=== PATIENT | female | born 1990 | race Caucasian/White ===

== ENCOUNTER 2019-03-05 20:19 | Outpatient (AMB) | payer MEDICAID, SELFPAY ==
--- NOTE | 2019-03-05 20:39 | UCVISIT ---
Intake Ht./Wt. Decline/Exclusions Patient Declined Height and Weight this visit: No PT Meets exclusion criteria: No Vital Signs 03/05/19 20:40 Height 5 ft 10 in Height Method Measured Weight 285 lb Weight Measurement Method Standing Scale BMI 40.8 Temp 98.7 F Temp Source Temporal Artery Scan Pulse 105 H Pulse Source Monitor Respiration 18 BP 126/76 Blood Pressure Source Automatic Cuff Blood Pressure Location Right Upper Arm Position Sitting Pulse Oximetry (%) 97 Oxygen Delivery Method Room Air Intake Zika Travel: No Been in contact w/anyone who has been Dx w/Zika Virus: No Been in contact w/anyone sick during travel outside country: No Patient >or equal to 18 years BMI outside of range 18.5-24.9: Yes Visit Reasons: UC Headache Primary Care Provider: Meir Garcia Is patient in pain?: Yes Pain Location:: head Bliss-Luna/Numerical: 7 Pain Scale Used: Numeric (1 - 10) Triage Triage Allergy / Med Rec Allergies morphine Allergy (Intermediate, Verified 03/05/19 21:38) Itching codeine Allergy (Mild, Verified 03/05/19 21:38) rash Band Placement: Patient Identification ESTRELLA: 0-Lcd-Hcaflc Arrival Mode of Arrival: Private Vehicle Method of Arrival: Ambulatory Accompanied By: Self PCP or OBGYN visit in last 3 months: Yes Language Preferred Language: Dominican Hospice Care Consultant Required: No Female History Now: No Last Menstrual Period: 02/12/19 : Yes Social History Alcohol / Drugs Hx Alcohol Use: No Hx Substance Use: No Safety Do You Feel Safe at Home: Yes Authorities Contacted: N/A Roberts Fall Scale Special Populations Patient Comatose, Paralyzed or Immobile: No Patient Under the Age of 44 Years Old: No Assessment History of falling; immediate or within 3 months: No Secondary diagnosis: Yes Ambulatory aid: None IV Infusion: No Gait/Transferring: Normal/bedrest/immobile Mental Status: Oriented to own ability Score Score: 15 Risk Level/Action Risk Level: Low Risk Action: Good Basic Nursing Care Fall Star Level 1 Fall Star Level 1: Yes Patient Education Topic Education Topics: Discharge Instructions and Plan of Care Teaching Recipient: Patient Readiness, Motivation to Learn: Active Methods: Verbal instruction and Hand Out Educ Materials Suggested by INFO Button/Rx Monograph Given: No Response: Verbalize Understanding Hospice Care Consultant Required: No Population Health PMH Hx Congestive Heart Failure: No Hx Diabetes Mellitus Type 1: No Hx Diabetes Mellitus Type 2: No Hx Renal Disease: No Hx Chronic Obstructive Pulmonary Disease (COPD): No Past Medical History Reviewed and agree with Nursing documentation.: Yes Past Medical History History Provided By: Patient Past Medical History: Yes Family Medical History Systems Hx Family Cardiac Disorders: Yes Hx Family Gastrointestinal Problems: No Hx Family Psychiatric Problems: No Hx Family Respiratory Disorders: No Family Medical History Other Hx Family Allergies: No Hx Family Anesthesia Reaction: No Hx Family Autoimmune Disease: No Hx Family Cancer: Yes Hx Family Surgery: No Cardiac Medical History Hx Cardiac Disorders: No Hx Congestive Heart Failure: No Endocrine Medical History Hx Endocrine Disorders: No Hx Diabetes Mellitus Type 1: No Hx Diabetes Mellitus Type 2: No Gastrointestinal Medical History Hx Gastrointestinal Disorders: Yes Hx GERD: Yes Hx Obesity: Yes Genitourinary Medical History Hx Genitourinary Disorders: No Hx Renal Disease: No Hematologic Medical History Hx Blood Disorders: No Musculoskeletal History Hx Musculoskeletal Disorders: No Neurologic Medical History Hx Neurological Disorders: No Hx Seizures: No Psycho/Social Medical History Hx Psychosocial Disorder: Yes Hx Anxiety: Yes Reproductive Medical History Hx Reproductive Disorders: Yes (polycystic ovarian syndrome) Respiratory Medical History Hx COPD: No General Surgical History Hx Surgery: Yes Female Reproductive Surgical History Hx Section: No Other Medical History ([facility]) Hx Hospitalization: No [facility] -Treatments & Interventions Hx Anesthesia Reactions: No Hx Blood Transfusions: No Hx Blood Transfusion Reaction: No HPI Headache Patient who had a previous history of migraines several years ago but has not had any since presents today with complaints of a severe headache that began about 10 AM this morning patient states [place] to having very little to drink and nothing to eat today patient states that she has taken 4 Tylenols and some ibuprofen with no relief of the pain she denies any dizziness nausea vomiting weakness fatigue shortness of breath chest pain head trauma use of illicit substances tobacco products or alcohol products. 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 Review of Systems (UC) Review of Systems All systems reviewed & no additional complaints except as documented Exam (UC) Alert and oriented x3 in no acute distress skin is normal color no diaphoresis eyes anicteric PERRLA ear canals are clear TMs pearly white and retracted nose patent no discharge mucosa is pink no exudate no lesions neck supple no lymphadenopathy lungs are clear to auscultation bilaterally heart is regular rate rhythm normal S1-S2 no murmurs rubs or gallops cranial nerves II through XII are intact SPO2%: 97% SPO2 type: Room Air SPO2% Normal/Abnormal: Normal Office Procedures Level of Care Nursing/Assessment/Reassessment Patient Status: Established Patient Nursing Assessment/Reassessment: Triage Asessment, Initial Vital Signs and RN General Assessments Coordination of Care: DC Instructions Simple Established Patient Charge Established Patient Point Assignment: 40 Established Patient Point Assignment: EP Level 2 (40-75) Procedures: Pulse Ox reading: Yes Assessment and Plan Assessment & Plan (1) Headache: Qualifiers: Headache chronicity pattern: acute headache Headache type: unspecified Intractability: not intractable Qualified Code(s): R51 - Headache Plan - José Miguel Ramos PA-C: I suspect the headache is caused by hunger and some mild dehydration you should eat a full meal and drink plenty of fluids get some rest and if symptoms does not improve in the morning follow-up with your primary care provider if symptoms should worsen go to the emergency department Plan Details Primary Care Provider: Meir Garcia Additional Information PA/REAL PROPERTY EVALUATOR Supervising Physician: Italo Reid DC Evaluation Discharge Information Seen, Treated and Released by Provider: No Left Prior to Receiving Discharge Instructions: No Transfer to Outside Facility: No Vital Signs Vitals Signs N/A: Yes Pain Pain Medication / Other Intervention Provided: No Medication Medication Given this Visit: No Discharge Information Condition on Discharge: Stable Mode of Discharge: Ambulatory Discharge Transportation: Private Vehicle Instructions Hospice Care Consultant Required: No Discharge Instructions Given To: Patient Was Follow up Care Ordered: Yes Verbalizes Understanding of Discharge Instructions: Yes Patient plan follow up w/PCP for [employer] [facility]: No
[2019-03-05 20:40] VITALS: BP 126/76; PULSE 105; RESP 18; TEMP 37.1; O2SAT 97; BMI 40.8
== END 2019-03-05 21:49 | disposition home or self-care (01) ==
PROVIDERS: PCP Nurse Practitioner; Referring Provider Nurse Practitioner; Visit Provider Physician Assistant

== ENCOUNTER 2025-03-10 05:07 | Emergency (ER) | payer MEDICAID, SELFPAY ==
[2025-03-10 05:08] VITALS: BMI 40.8
[2025-03-10 05:22] VITALS: BP 115/79; PULSE 107; RESP 18; TEMP 36.6; O2SAT 98
[2025-03-10 06:38] VITALS: BP 119/61; PULSE 73; RESP 18; TEMP 36.8; O2SAT 95
--- NOTE | 2025-03-10 06:42 | PD.EDEAR ---
ED Ear RME/HPI General Chief complaint: Ear Stated complaint: R EAR PAIN AND DRAINAGE Time Seen by Provider: 03/10/25 05:55 Arrival date/time: 03/10/25 05:07 Limitations: no limitations RME / HPI RME / HPI Narrative: 34 year old female with history of chronic otitis externa, in the past requiring IV abx, and multiple PE tubes (usually on the right) presents to the ED today for evaluation of right ear pain and discharge beginning ~ 1 week ago. Accompanied by subjective fevers. States she took Ibuprofen at 8PM last night with some improvement. Reports symptoms today similar to previous ear infection and usually sees PCP but has yet to consult since onset of symptoms. Denies any change in appetite. No other associated symptoms reported. Related Data Home Medications ?Medication ?Instructions ?Recorded ?Confirmed gabapentin 600 mg tablet 600 mg PO TID 01/18/20 07/15/21 buspirone 10 mg tablet 10 mg PO BID 07/15/21 07/15/21 hydroxyzine HCl 25 mg tablet 25 mg PO Q8H 07/15/21 07/15/21 sertraline 100 mg tablet 100 mg PO QDAY 07/15/21 07/15/21 trazodone 100 mg tablet 100 mg PO QDAY 07/15/21 07/15/21 aripiprazole 5 mg tablet 1 tab PO HS 04/01/22 04/01/22 buspirone 15 mg tablet 1 tab PO BID 04/01/22 04/01/22 clonazepam 0.5 mg tablet 1 tab PO DAILY PRN Anxiety 04/01/22 04/01/22 mirtazapine 7.5 mg tablet 1 tab PO DAILY 04/01/22 04/01/22 propranolol 20 mg tablet 1 tab PO TID 04/01/22 04/01/22 Previous Rx's ?Medication ?Instructions ?Recorded ibuprofen 800 mg tablet 800 mg PO TID PRN pain #30 tabs 08/23/21 ibuprofen 800 mg tablet 800 mg PO TID PRN pain #30 tabs 02/21/22 ibuprofen 800 mg tablet 800 mg PO TID PRN pain #30 tabs 05/09/22 ibuprofen 800 mg tablet 800 mg PO Q8H PRN pain #20 tabs 01/09/23 ibuprofen 800 mg tablet 800 mg PO TID PRN pain #30 tabs 10/08/23 ondansetron 4 mg disintegrating 4 mg PO Q8H PRN nausea and 10/08/23 tablet vomiting #10 tabs amoxicillin 875 mg-potassium 1 tab PO Q12H RIGHT OTITIS EXTERNA 03/10/25 clavulanate 125 mg tablet #20 tabs ciprofloxacin 0.3 %-dexamethasone 4 drp otic (ear) Q12H RIGHT OTITIS 03/10/25 0.1 % ear drops,suspension EXTERNA 7 days #7.5 mL fluconazole 150 mg tablet 150 mg PO QDAY RIGHT OTITIS 03/10/25 EXTERNA 1 dose #14 tabs rlpyiwil-rqmabl-TJ-thonzonm 3.3 4 drp otic (ear) QID RIGHT OTITIS 03/10/25 mg-3 mg-10 mg-0.5 mg/mL ear EXTERNA #10 mL drops,susp (Cortisporin-TC) Allergies Allergy/AdvReac Type Severity Reaction Status Date / Time codeine Allergy Severe rash Verified 03/10/25 05:14 morphine Allergy Severe Itching Verified 03/10/25 05:14 Review of Systems Review of Systems Systems Reviewed: All systems reviewed, normal except as documented Past Medical History Past Medical History RESPIRATORY: Positive Asthma GASTROINTESTINAL: Positive Gastrointestinal Disorders, Hemorrhoids, Gastroesophageal Reflux Disease and Obesity REPRODUCTIVE: Positive Previous Pregnancies MUSCULOSKELETAL: Positive Musculoskeletal Disorders, Arthritis, Osteoporosis, Degenerative Disk Disease and Fibromyalgia ENT: Positive History of ENT Problems and Ear Infection PSYCHO/SOCIAL: Positive Depression, Anxiety, Depression and Post Traumatic Stress Disorder OTHER HISTORY: Positive Cancer Family History FAMILY HISTORY: Positive Family Psychiatric Problems, Family Respiratory Disorders, Family Cardiac Disorders, Family Gastrointestinal Problems, Family Cancer and Family Surgery Surgical History SURGICAL: Positive Tympanostomy Tube, Tonsillectomy and Section; Negative Pacemaker Social History SMOKING STATUS: Never smoker SECOND HAND EXPOSURE: No ED Exam General Limitations: Present no limitations General appearance: Present alert and in no apparent distress Head Head exam: Present atraumatic and normocephalic Eye Eye exam: Present normal appearance, PERRL and EOMI ENT ENT exam: Present other (Rigth external canal erythematous, mild edema, and mild amount of discharge on the back of the ear, unable to visualize TM, no pain with pulling pinna ) Neck Neck exam: Present normal inspection, full ROM and trachea midline Chest Chest inspection: Present normal inspection and symmetric chest wall rise Respiratory Respiratory exam: Present normal lung sounds bilaterally Cardiovascular Cardiovascular exam: Present regular rate, normal rhythm and normal heart sounds Extremities Exam Extremities exam: Present normal inspection Neurological Exam Neurological exam: Present alert, oriented X3 and CN II-XII intact Psychiatric Psychiatric exam: Present normal affect and normal mood Skin Skin exam: Present warm, dry, intact and normal color Course Quality Measures none Vital Signs Vital signs: Vital Signs Temperature 98 F 03/10/25 05:22 Pulse Rate 107 H 03/10/25 05:22 Respiratory Rate 18 03/10/25 05:22 Blood Pressure 115/79 03/10/25 05:22 Pulse Oximetry (%) 98 03/10/25 05:22 Oxygen Delivery Method Room Air 03/10/25 05:22 Pulse ox is 98% on room air which is adequate. Ear MDM Narrative MDM Narrative:: IAilyn, am scribing for and in the presence of Dr. Gonzalez. 34 year old female with history of chronic otitis externa, in the past requiring IV abx, and multiple PE tubes (usually on the right) presents to the ED for right ear pain and drainage beginning 1 week ago. States in the past she had had fungal infections in her ear. Although states she doesnt feel she has one today. I still prescribed prophylactic Diflucan. Patient data External records reviewed:: [facility] previous records (I reviewed ED visit on 12/21/2023 ) Clinical information provided by:: patient Social determinants that could affect healthcare access:: none Patient has the following chronic illnesses:: Chronic otitis externa How is presenting disease/condition affected by chronic disease/condition?: exacerbated by Evaluation data The following diagnostics were reviewed and interpreted by me:: other (specify) (No diagnostics ordered ) Lab and/or radiology exams considered but not ordered:: None Interpretation Summary: No diagnostics to interpret Medications / Prescriptions Medications or Prescriptions considered but not ordered:: None Medication administrations:: None Consultations Consultation(s) initiated? (list below): No Diagnosis Most likely diagnosis given after review of the tests above:: Right otitis externa Admission Indicated Admission indicated?: not indicated Admission Request Was there a request for admission?: No Disposition Plan Disposition Plan: Discharge Discharge Attestation Discharge Attestation: The patient and all family members were given an opportunity to ask questions and understood the discharge instructions. Discharge instructions specifically effects, indications for sooner follow up or return to the emergency department, and the expected course of current diagnosis. Patient condition: Stable Discharge Plan Plan Patient Disposition: HOME (Self Care) Prescriptions/Referrals Prescriptions/Med Rec: New ciprofloxacin-dexamethasone 0.3-0.1 % drops,suspension 4 drp otic (ear) Q12H MDD 8 DROPS 7 Days Qty: 7.5 1RF Cortisporin-TC 3.3-3-10-0.5 mg/mL drops,suspension 4 drp otic (ear) QID MDD 16 Qty: 10 0RF amoxicillin-pot clavulanate 875-125 mg tablet 1 tab PO Q12H MDD 2 Qty: 20 0RF fluconazole 150 mg tablet 150 mg PO QDAY MDD 1 Qty: 14 0RF Rx Instructions: administer on day 1 of therapy No Action gabapentin 600 mg tablet 600 mg PO TID Rx Instructions: qam and noon. sertraline 100 mg tablet 100 mg PO QDAY trazodone 100 mg tablet 100 mg PO QDAY buspirone 10 mg tablet 10 mg PO BID hydroxyzine HCl 25 mg tablet 25 mg PO Q8H ibuprofen 800 mg tablet 800 mg PO TID PRN (Reason: pain) Qty: 30 0RF ibuprofen 800 mg tablet 800 mg PO TID PRN (Reason: pain) Qty: 30 0RF propranolol 20 mg tablet 1 tab PO TID Patient Comments: TAKE 1 TO 2 TABLETS BY MOUTH TWICE DAILY NEEDED buspirone 15 mg tablet 1 tab PO BID Patient Comments: TAKE ONE TABLET BY MOUTH TWICE DAILY aripiprazole 5 mg tablet 1 tab PO HS Patient Comments: TAKE ONE TABLET BY MOUTH EVERY DAY AT BED TIME mirtazapine 7.5 mg tablet 1 tab PO DAILY Patient Comments: TAKE ONE TABLET BY MOUTH EVERY DAY AT BEDTIME clonazepam 0.5 mg tablet 1 tab PO DAILY PRN (Reason: Anxiety) Patient Comments: TAKE ONE TABLET BY MOUTH EVERY DAY NEEDED ibuprofen 800 mg tablet 800 mg PO TID PRN (Reason: pain) Qty: 30 0RF ibuprofen 800 mg tablet 800 mg PO Q8H PRN (Reason: pain) Qty: 20 0RF ibuprofen 800 mg tablet 800 mg PO TID PRN (Reason: pain) Qty: 30 0RF ondansetron 4 mg tablet,disintegrating 4 mg PO Q8H PRN (Reason: nausea and vomiting) Qty: 10 0RF Referrals: Diony Alfonso PA-C [Primary Care Provider] - In 1 week Problem List Clinical Impression: Otitis externa Patient/Caregiver Discharge Instructions Education Materials: ED External Ear Infection (Adult) Additional Instructions: Follow-up with your primary care doctor in 3 to 5 days for recheck. You can return to the emergency department sooner if symptoms worsen or if you notice any new, concerning issues. Print Language: [place] Stand Alone Forms: [facility] Award Info., Patient Portal Info Letter
== END 2025-03-10 07:14 | disposition home or self-care (01) ==
PROVIDERS: Emergency Provider Family Medicine; PCP Physician Assistant
DX: H60.61 Unspecified chronic otitis externa, right ear (principal)
CPT/HCPCS: 99282